=== PATIENT | female | born 1995 | race Caucasian/White ===

== ENCOUNTER → 2017-09-19 | Outpatient (CLI) | payer BC, OTHER ==
[~2017-09-19] MED LIST: ALBU90OI6 INH; BUDE6HFA; Keflex500 MG PO; Naprosyn500 MG PO; Norco 5-325 Ta1 EACH PO
[2017-09-20 08:50] LABS: Source VAG/CERVIX
== END | disposition home or self-care (01) ==
LOC: LAB 11:43
PROVIDERS: Nurse Practitioner Obstetrics & Gynecology
DX: Z01.419 Encounter for gynecological examination (general) (routine) without abnormal findings (principal); Z11.3 Encounter for screening for infections with a predominantly sexual mode of transmission
CPT/HCPCS: 87491; 87591; G0123

== ENCOUNTER → 2023-06-16 | Outpatient (CLI) | payer OTHER ==
[2023-06-16 18:18] LABS: Source, Urine Clean Catch
[2023-06-16 19:53] LABS: U Amphetamine Screen Not Detected; U Barbituate Screen Not Detected; U Benzodiazapine Screen Not Detected; U Buprenorphine Screen Not Detected; U Cannabinoids Screen Not Detected; U Cocaine Screen Not Detected; U Methadone Screen Not Detected; U Methamphetamine Screen Not Detected; U Opiates Screen Not Detected; U Oxycodone Screen Not Detected; U Phencyclidine Screen Not Detected
[2023-06-16 20:09] LABS: Bacteria Few /hpf; Red Blood Cells, Urine 0-2 /hpf (0-2); Squamous Epithelial Cells Few /hpf (Few); White Blood Cells, Urine 0-2 /hpf (0-5)
== END ==
LOC: LAB SHORT 18:15 → LAB 18:15
PROVIDERS: Obstetrics & Gynecology
DX: Z34.01 Encounter for supervision of normal first pregnancy, first trimester (principal)
CPT/HCPCS: 81015; 87086

== ENCOUNTER → 2023-07-01 | Outpatient (CLI) | payer OTHER | LOC: LAB SHORT 15:46 → LAB 15:46 | PROVIDERS: Obstetrics & Gynecology | DX: Z34.01 Encounter for supervision of normal first pregnancy, first trimester (principal) | CPT/HCPCS: G0123 ==

== ENCOUNTER 2023-12-27 21:35 | Inpatient (IN) | payer OTHER ==
[~2023-12-27] VITALS: Ht 149.9 cm; Wt 70.0 kg
[2023-12-27 21:51] VITALS: BP 129/84
[2023-12-27] MEDS ORDERED: Promethazine HCl 25 MG Tab PO ONE (23:50)
[2023-12-27] MEDS ORDERED: Morphine Sulfate 10 MG/ML 1MLSYR IM ONE (23:50)
[2023-12-27] MEDS ORDERED: Lactated Ringer's 1,000 ML IV SCH (23:55)
[2023-12-27] MEDS ORDERED: Morphine Sulfate 10 MG/ML 1MLSYR IV ONE (23:55)
[2023-12-28] VITALS (33 sets, daily range): BP systolic 112–153; BP diastolic 69–103
[2023-12-28] MEDS ORDERED: FentaNYL Citrate 50 MCG/ML 2 ML Injection IV PRN (00:35)
[2023-12-28] MEDS ORDERED: Lidocaine HCl 1% 30 ML SDV XX SCH (00:35)
[2023-12-28] MEDS ORDERED: Castor Oil 59.146 ML BTL TOP SCH (00:35)
[2023-12-28] MEDS ORDERED: Methylergonovine Maleate 0.2MG / ML 1ML Amp IM SCH (00:35)
[2023-12-28] MEDS ORDERED: FentaNYL 2mcg/ml-Bup 0.1% Epd 250 ML EPI PRN (00:35)
[2023-12-28] MEDS ORDERED: Bupivacaine 0.5% HCl 5 MG/ML 30MLVIAL XX SCH (00:35)
[2023-12-28] MEDS ORDERED: Oxytocin 10 Unit / ML Vial IM SCH (00:35)
[2023-12-28] MEDS ORDERED: Bupivacaine HCl 2.5 MG/ML 10ML P/F Injection XX SCH (00:35)
[2023-12-28] MEDS ORDERED: Lactated Ringer's 1,000 ML IV PRN ×3 (00:35)
[2023-12-28] MEDS ORDERED: ePHEDrine Sulfate 50 MG/ML 1ML Injection XX PRN (00:35)
[2023-12-28] MEDS ORDERED: Misoprostol 200 MCG Tab PR SCH (00:35)
[2023-12-28] MEDS ORDERED: LR Oxytocin 20 Units 1,000 ML IV SCH ×2 (00:35→05:00)
[2023-12-28] MEDS ORDERED: Ondansetron HCl 2 MG / ML 2ML Vial IV PRN (00:35)
[2023-12-28 00:40] LABS: BASOPHILS ABSOLUTE AUTO 0.04 K/mm3 (0.00-0.23); BASOPHILS PERCENT AUTO 0 % (0-2); EOSINOPHILS ABSOLUTE AUTO 0.02 K/mm3 (0.00-0.68); EOSINOPHILS PERCENT AUTO 0 % (0-6); Hematocrit 42.1 % (33.0-51.0); Hemoglobin 15.2 g/dL (11.5-16.0); IMMATURE GRAN ABSOLUTE AUTO 0.05 K/mm3 (0.00-0.10); IMMATURE GRAN PERCENT AUTO 0 % (0-1); LYMPHOCYTES ABSOLUTE AUTO 1.64 K/mm3 (0.84-5.20); LYMPHOCYTES PERCENT AUTO 10 % (21-46); MONOCYTES ABSOLUTE AUTO 0.65 K/mm3 (0.16-1.47); MONOCYTES PERCENT AUTO 4 % (4-13); Mean Corpuscular HGB 30.5 pg (26.0-34.0); Mean Corpuscular HGB Conc 36.1 g/dL (31.5-36.5); Mean Corpuscular Volume 85 fL (80-100); Mean Platelet Volume 11.4 fL (9.1-12.4); NEUTROPHILS PERCENT AUTO 85 % (41-73); Platelet Count 298 K/mm3 (150-400); RDW Coefficient Variation 12.6 % (11.7-14.2); RDW Standard Deviation 38.4 fL (35.1-46.3); Red Blood Cell Count 4.98 M/mm3 (3.80-5.20)
[2023-12-28] MEDS ORDERED: LORA10ER PO (00:58)
[2023-12-28] MEDS ORDERED: FLUT1DIS5 INH (00:59)
[2023-12-28] MEDS ORDERED: FLUT1DIS2 INH (00:59)
[2023-12-28] MEDS ORDERED: OXYM.05NI (01:00)
[2023-12-28] MEDS ORDERED: FLONASE ALLERG9.9 M2 NS (01:01)
[2023-12-28] MEDS ORDERED: Oxytocin 10 Unit / ML Vial IM ONE (05:00)
[2023-12-28] MEDS ORDERED: Misoprostol 200 MCG Tab PR PRN (05:00)
[2023-12-28] MEDS ORDERED: Lactated Ringer's 1,000 ML IV SCH (05:00)
[2023-12-28] MEDS ORDERED: Witch Hazel/Glycerin PADS TOP PRN (05:00)
[2023-12-28] MEDS ORDERED: Lanolin Cream TOP PRN (05:00)
[2023-12-28] MEDS ORDERED: Ketorolac Tromethamine 30mg Vial IV SCH (05:00)
[2023-12-28] MEDS ORDERED: Benzocaine Topical Anesthetic Spray 60GM TOP PRN (05:05)
[2023-12-28] MEDS ORDERED: Ibuprofen 400 MG Tab PO PRN (05:05)
[2023-12-28] MEDS ORDERED: Misoprostol 200 MCG Tab PO PRN (05:05)
[2023-12-28] MEDS ORDERED: Polyethylene Glycol 3350 17 gm PO PRN (05:05)
[2023-12-28] MEDS ORDERED: Acetaminophen 325 MG TABLET PO PRN (05:05)
[2023-12-28 07:23] LABS: BASOPHILS ABSOLUTE AUTO 0.03 K/mm3 (0.00-0.23); BASOPHILS PERCENT AUTO 0 % (0-2); EOSINOPHILS PERCENT AUTO 0 % (0-6); Hematocrit 37.7 % (33.0-51.0); Hemoglobin 13.3 g/dL (11.5-16.0); IMMATURE GRAN ABSOLUTE AUTO 0.08 K/mm3 (0.00-0.10); IMMATURE GRAN PERCENT AUTO 0 % (0-1); LYMPHOCYTES ABSOLUTE AUTO 1.34 K/mm3 (0.84-5.20); LYMPHOCYTES PERCENT AUTO 7 % (21-46); MONOCYTES PERCENT AUTO 7 % (4-13); Mean Corpuscular HGB 30.6 pg (26.0-34.0); Mean Corpuscular HGB Conc 35.3 g/dL (31.5-36.5); Mean Corpuscular Volume 87 fL (80-100); Mean Platelet Volume 11.5 fL (9.1-12.4); NEUTROPHILS ABSOLUTE AUTO 16.32 K/mm3 (1.96-9.15); NEUTROPHILS PERCENT AUTO 86 % (41-73); Platelet Count 249 K/mm3 (150-400); RDW Coefficient Variation 12.6 % (11.7-14.2); RDW Standard Deviation 39.7 fL (35.1-46.3); Red Blood Cell Count 4.34 M/mm3 (3.80-5.20); White Blood Cell Count 19.07 K/mm3 (4.00-11.30)
[2023-12-28] MEDS ORDERED: Prenatal Vit/FE Fumarate/FA 1 Tab PO SCH (09:00)
[2023-12-29 05:36] VITALS: BP 120/74
[2023-12-29 07:33] VITALS: BP 120/75
[2023-12-29 08:11] VITALS: BP 127/82
[2023-12-29 11:36] VITALS: BP 126/73
== END 2023-12-29 11:50 | disposition home or self-care (01) | DRG 807 ==
LOC: OBS 21:35 → BC 21:38 → OBS 12-28 00:40 → BC 12-28 00:41
PROVIDERS: ADMIT Family Medicine
PROC: 10E0XZZ Delivery of Products of Conception, External Approach (ICD-10-PCS; principal; 2023-12-28)
PROC: 0KQM0ZZ Repair Perineum Muscle, Open Approach (ICD-10-PCS; 2023-12-28)
PROC: 3E0R3BZ Introduction of Anesthetic Agent into Spinal Canal, Percutaneous Approach (ICD-10-PCS; 2023-12-28)
PROC: 00HU33Z Insertion of Infusion Device into Spinal Canal, Percutaneous Approach (ICD-10-PCS; 2023-12-28)
DX: O99.344 Other mental disorders complicating childbirth (principal); Z37.0 Single live birth; F41.9 Anxiety disorder, unspecified; O99.52 Diseases of the respiratory system complicating childbirth; J45.909 Unspecified asthma, uncomplicated; O70.1 Second degree perineal laceration during delivery; O69.81X0 Labor and delivery complicated by cord around neck, without compression, not applicable or unspecified; Z3A.38 38 weeks gestation of pregnancy
CPT/HCPCS: 36415; 51702; 59025; 85025; 86850; 86900; 86901; 87210; A9270; J1885; J2270; J2590; J7120

== ENCOUNTER 2024-07-06 03:16 | Emergency (ER) | payer OTHER ==
[~2024-07-06] VITALS: Ht 149.9 cm; Wt 67.1 kg
[~2024-07-06 03:16] MED LIST changes: +FLONASE ALLERG9.9 M2 NS; +FLUT1DIS2 INH; +FLUT1DIS5 INH; +LORA10ER PO; +OXYM.05NI
[2024-07-06 03:45] LABS: BASOPHILS ABSOLUTE AUTO 0.09 K/mm3 (0.00-0.23); BASOPHILS PERCENT AUTO 1 % (0-2); EOSINOPHILS ABSOLUTE AUTO 0.78 K/mm3 (0.00-0.68); EOSINOPHILS PERCENT AUTO 11 % (0-6); Hematocrit 46.1 % (33.0-51.0); Hemoglobin 16.1 g/dL (11.5-16.0); IMMATURE GRAN ABSOLUTE AUTO 0.02 K/mm3 (0.00-0.10); IMMATURE GRAN PERCENT AUTO 0 % (0-1); LYMPHOCYTES ABSOLUTE AUTO 2.68 K/mm3 (0.84-5.20); LYMPHOCYTES PERCENT AUTO 38 % (21-46); MONOCYTES ABSOLUTE AUTO 0.38 K/mm3 (0.16-1.47); MONOCYTES PERCENT AUTO 5 % (4-13); Mean Corpuscular HGB 29.5 pg (26.0-34.0); Mean Corpuscular HGB Conc 34.9 g/dL (31.5-36.5); Mean Corpuscular Volume 85 fL (80-100); Mean Platelet Volume 9.7 fL (9.1-12.4); NEUTROPHILS ABSOLUTE AUTO 3.16 K/mm3 (1.96-9.15); NEUTROPHILS PERCENT AUTO 44 % (41-73); Platelet Count 333 K/mm3 (150-400); RDW Coefficient Variation 12.4 % (11.7-14.2); RDW Standard Deviation 37.8 fL (35.1-46.3); Red Blood Cell Count 5.45 M/mm3 (3.80-5.20); White Blood Cell Count 7.11 K/mm3 (4.00-11.30)
[2024-07-06 04:04] LABS: Albumin, Blood 3.9 g/dL (3.4-5.0); Albumin/Globulin Ratio 1.2 (0.8-1.8); Bilirubin, Total 0.3 mg/dL (0.1-1.0); Bun/Creatinine Ratio 16.9 (12.0-20.0); Calcium, Blood 8.9 mg/dL (8.5-10.1); Creatinine, Blood 0.65 mg/dL (0.40-1.00); Globulin, Blood 3.3 g/dL (2.2-4.0); Potassium, Blood 3.6 mmol/L (3.5-5.5); Total Protein, Blood 7.2 g/dL (6.4-8.2)
[2024-07-06 04:49] LABS: Influenza A, PCR NEGATIVE (NEGATIVE); Influenza B, PCR NEGATIVE (NEGATIVE); Resp Syncytial Virus, PCR NEGATIVE (NEGATIVE); SARS-Cov-2 (COVID-19) PCR, MMC NEGATIVE (NEGATIVE)
[2024-07-06] MEDS ORDERED: ONDA4ODT MM (04:54)
[2024-07-06] MEDS ORDERED: RX Prepack 2 Tabs Ondansetron ODT 4MG UD ONE (04:55)
[2024-07-06 05:00] VITALS: BP 116/71
== END 2024-07-06 05:18 | disposition home or self-care (01) ==
LOC: ER 03:16
PROVIDERS: Student in an Organized Health Care Education/Training Program
DX: R56.9 Unspecified convulsions (principal); R11.2 Nausea with vomiting, unspecified; J45.909 Unspecified asthma, uncomplicated; Z79.51 Long term (current) use of inhaled steroids; Z79.899 Other long term (current) drug therapy; Z91.018 Allergy to other foods
CPT/HCPCS: 0241U; 80053; 84703; 85025; 93005; 93010; 99284-25; A9270